=== PATIENT | female | born 1945 | race Caucasian/White ===

== ENCOUNTER 2020-10-04 11:02 | Outpatient (CLI) | payer MEDICARE, BC ==
--- NOTE | 2020-10-04 11:31 | MMO ---
Bilateral MAMMO Bilat Screen [facility]. CLINICAL HISTORY: Patient is 75 years old and is seen for screening. The patient has no family history of breast cancer. The patient has no personal history of cancer. VIEWS: The views performed were: bilateral craniocaudal with tomosynthesis and bilateral mediolateral oblique with tomosynthesis. FILMS COMPARED: The present examination has been compared to prior imaging studies performed at [facility] on 07/04/2014, 01/07/2015, 10/07/2015 and 10/14/2016. This study has been interpreted with the assistance of computer-aided detection. MAMMOGRAM FINDINGS: There are scattered fibroglandular densities. Benign calcifications are noted bilaterally. There are no suspicious masses, suspicious calcifications, or new areas of architectural distortion. IMPRESSION: THERE IS NO MAMMOGRAPHIC EVIDENCE OF MALIGNANCY. A ROUTINE FOLLOW-UP MAMMOGRAM IN 1 YEAR IS RECOMMENDED. THE RESULTS OF THIS EXAM WERE SENT TO THE PATIENT. ACR BI-RADS Category 2 - Benign finding MAMMOGRAPHY NOTE: 1. A negative mammogram report should not delay a biopsy if a dominant of clinically suspicious mass is present. 2. Approximately 10% to 15% of breast cancers are not detected by mammography. 3. Adenosis and dense breasts may obscure an underlying neoplasm. Reported by: JOSUE RIVAS MD Electonically Signed: [id number]
--- NOTE | 2020-10-04 12:58 | BD ---
DEXA BONE DENSITY STUDY: Date: 10/04/2020 HISTORY: Osteoporosis screening. COMPARISON: None. FINDINGS: Lumbar Spine: BMD (g/cm2) L1 0.872 T-Score: -1.1 Z-Score: 1.1 L2 1.000 T-Score: -0.3 Z-Score: 1.3 L3 1.047 T-Score: -0.3 Z-Score: 2.2 L4 0.922 T-Score: -1.3 Z-Score: 1.3 L1-L4 0.962 T-Score: -0.8 Z-Score: 1.6 Left Femoral Neck: 0.749 T-Score: -0.9 Z-Score: 1.2 Total Femur: 0.833 T-Score: -0.9 Z-Score: 0.9 WHO Classification: Normal. IMPRESSION: Normal bone mineral density. POS: OFF
== END 2020-10-04 11:03 | disposition home or self-care (01) ==
LOC: BICMAMMO 11:02
PROVIDERS: ATTEND Registered Nurse
DX: Z12.31 Encounter for screening mammogram for malignant neoplasm of breast (principal); Z13.820 Encounter for screening for osteoporosis; Z78.0 Asymptomatic menopausal state
CPT/HCPCS: 77063; 77067; 77080